=== PATIENT | female | born 1990 | race African-American/Black ===

== ENCOUNTER 2017-02-11 17:56 | Emergency (ER) | payer MEDICAID, OTHER ==
[~2017-02-11] VITALS: Ht 162.6 cm; Wt 104.3 kg
[~2017-02-11 17:56] MED LIST: ACETAMINOPHEN-1 EAC1 PO; AUGMENTIN 500-1 EACH ORAL; CEPHALEXIN500 MG ORAL; COLACE100 MG ORAL; FERROUS SULFAT325 MG PO; IBUPROFEN600 MG ORAL; IBUPROFEN600 MG PO; IRON325 M1 PO; NKM; NORCO 5-325 TA1 EACH ORAL; NORCO 5-325 TA1 EACH PO
[2017-02-11 18:05] VITALS: BP 122/80
[2017-02-11 18:37] LABS: APPEARANCE,URINE SLIGHTLY CLOUDY; KETONES,URINE NEGATIVE (NEGATIVE); LEUKOCYTE ESTERASE ,URINE 2+ (NEGATIVE); NITRITE,URINE POSITIVE (NEGATIVE); PH,URINE 7 (4.5-8.0); PROTEIN,URINE 1+ (NEGATIVE); UROBILINOGEN,URINE 4 MG/DL (0.0-1.0)
[2017-02-11 18:45] LABS: BACTERIA,URINE MODERATE /HPF; SQUAMOUS EPITHELIAL CELL,UR FEW /LPF (NONE/OCC)
[2017-02-11] MEDS ORDERED: ROBAXIN-750750 MG PO (18:55)
[2017-02-11] MEDS ORDERED: IBUPROFEN600 MG ORAL (18:55)
[2017-02-11] MEDS ORDERED: CEPHALEXIN500 MG ORAL (18:55)
[2017-02-11 19:05] VITALS: BP 122/80
--- NOTE | 2017-02-11 21:43 | Emergency Room Report ---
History of Present Illness General Chief Complaint: Back Pain-No Injury Source: Patient Present Illness [facility] The patient is a 26-year-old female presenting for back pain since yesterday as well as chills. Pain is a 9/10 dull ache to the lower back. Does not radiate. No known provoking or relieving factors. She denies any back injury. She denies other symptoms including nausea, vomiting, fever, shortness of breath, chest pain, vaginal discharge, dysuria Allergies: Coded Allergies: No Known Allergies (Unverified , 06/13/12) Patient History Past Medical History: see triage record Pertinent Family History: none Now: No Reviewed Nursing Documentation: PMH: Agreed, PSxH: Agreed Nursing Documentation-PMH Past Medical History: No History, Except For Hx Cardiac Problems: No - ANEMIA Review of Systems All Other Systems: negative except mentioned in HPI Physical Exam Vital Signs Date Time Temp Pulse Resp B/P (MAP) Pulse Ox O2 Delivery O2 Flow Rate FiO2 02/11/17 17:58 98.1 98 20 122/80 99 Room Air Sp02 EP Interpretation: reviewed, normal General Appearance: no apparent distress, alert, GCS 15, non-toxic Head: normocephalic, atraumatic Eyes: bilateral eye normal inspection, bilateral eye PERRL ENT: hearing grossly normal, normal pharynx, no angioedema, normal voice Neck: full range of motion, supple/symm/no masses Respiratory: chest non-tender, lungs clear, normal breath sounds, speaking full sentences Gastrointestinal: normal bowel sounds, non tender, soft, non-distended, no guarding, no rebound Genitourinary: normal inspection, CVA tenderness (R), CVA tenderness (L) Musculoskeletal: back normal, gait/station normal, normal range of motion, tender - bilat paraspinal Neurologic: alert, oriented x3, responsive, motor strength/tone normal, sensory intact, speech normal Psychiatric: judgement/insight normal, memory normal, mood/affect normal, no suicidal/homicidal ideation Skin: normal color, no rash, warm/dry, well hydrated Medical Decision Making PA Attestation Dr. Walden is my supervising physician. Patient management was discussed with my supervising physician Diagnostic Impression: Primary Impression: Muscle strain Additional Impression: UTI (urinary tract infection) Qualified Codes: N39.0 - Urinary tract infection, site not specified ER Course The patient is a 26-year-old female presenting for back pain since yesterday as well as chills. Differential diagnosis considered but not limited to: UTI, BV, yeast infection, pyelonephritis, muscle strain PE: Vitals WNL. NAD. Abdomen: Normal appearance. Non distended. No ecchymosis. Normal BS. Non tender. No McBurney point tenderness. No guarding. + bilat CVA tenderness Lumbar paraspinal muscles are also tenderness with soft palpation Urinalysis is consistent with urinary tract infection The patient discharged home with a prescription for abx and pain medications and is given ER precautions. Laboratory Tests Test 02/11/17 18:28 Urine Color Yellow Urine Appearance Slightly cloudy Urine pH 7 (4.5-8.0) Urine Specific Clancy 1.010 (1.005-1.035) Urine Protein 1+ (NEGATIVE) H Urine Glucose (UA) Negative (NEGATIVE) Urine Ketones Negative (NEGATIVE) Urine Occult Blood 1+ (NEGATIVE) H Urine Nitrite Positive (NEGATIVE) H Urine Bilirubin Negative (NEGATIVE) Urine Urobilinogen 4 MG/DL (0.0-1.0) H Urine Leukocyte Esterase 2+ (NEGATIVE) H Urine RBC 2-4 /HPF (0 - 2) H Urine WBC 5-10 /HPF (0 - 2) H Urine Squamous Epithelial Cells Few /LPF (NONE/OCC) Urine Bacteria Moderate /HPF (NONE) H Urine HCG, Qualitative Negative Lab Results Impression Urinalysis is consistent with urinary tract infection Last Vital Signs Date Time Temp Pulse Resp B/P (MAP) Pulse Ox O2 Delivery O2 Flow Rate FiO2 02/11/17 19:05 98.1 86 20 122/80 99 Room Air Status: improved Disposition: HOME, SELF-CARE Condition: Improved Scripts Methocarbamol* (ROBAXIN-750*) 750 Mg Tablet 750 MG PO TID, #21 TAB 0 Refills Prov: TERZIAN,OLVIN P.A. 02/11/17 Cephalexin* (KEFLEX*) 500 Mg Capsule 500 MG ORAL EVERY 12 HOURS, #14 CAP 0 Refills Prov: TERZIAN,OLVIN P.A. 02/11/17 Ibuprofen* (MOTRIN*) 600 Mg Tablet 600 MG ORAL Q8H Y for For Pain, #30 TAB 0 Refills Prov: TERZIAN,OLVIN P.A. 02/11/17 Referrals: [facility],REFERRING (PCP) Patient Instructions: Back Pain, Adult, Urinary Tract Infection Additional Instructions: I discussed my findings with the patient. All questions and concerns have been answered. Treatment and medication compliance have been addressed. I advised the patient that they need to follow up with PMD in 3-5 days. Return to ED if symptoms worsen, new symptoms arise, or if needed for any reason. Patient verbalized understanding of discharge instructions. OLVIN NORMAN Feb 11, 2017 21:43
== END 2017-02-11 19:05 | disposition home or self-care (01) ==
LOC: EMR 18:58
DX: S39.012A Strain of muscle, fascia and tendon of lower back, initial encounter (principal); X58.XXXA Exposure to other specified factors, initial encounter; Y92.9 Unspecified place or not applicable; N39.0 Urinary tract infection, site not specified
CPT/HCPCS: 81003; 81025; 87086; 87181; 99284

== ENCOUNTER 2017-05-18 22:08 | Emergency (ER) | payer MEDICAID ==
[~2017-05-18] VITALS: Ht 162.6 cm; Wt 106.6 kg
[~2017-05-18 22:08] MED LIST changes: +ROBAXIN-750750 MG PO
[2017-05-18 22:30] VITALS: BP 112/69
[2017-05-18] MEDS ORDERED: TYLENOL EXTRA500 MG ORAL (22:30)
--- NOTE | 2017-05-18 22:35 | Emergency Room Report ---
History of Present Illness General Chief Complaint: Sore Throat Source: Patient Present Illness HPI 26-year-old female presents with sore throat for 2-3 days. Patient had tonsillectomy in the past States sore throat, +mild dry cough. Pain with swallowing however has still been able to eat/drink. No change in voice. No pain with extension/movement of neck. Denies fever or chills. No sick contacts. Allergies: Coded Allergies: No Known Allergies (Unverified , 06/13/12) Patient History Past Medical History: see triage record Past Surgical History: none Pertinent Family History: none Last Menstrual Period: april 30 Now: No Reviewed Nursing Documentation: PMH: Agreed; PSxH: Agreed Nursing Documentation-PMH Hx Cardiac Problems: No - ANEMIA Review of Systems All Other Systems: negative except mentioned in HPI Physical Exam Vital Signs Date Time Temp Pulse Resp B/P (MAP) Pulse Ox O2 Delivery O2 Flow Rate FiO2 05/18/17 22:20 98.6 89 18 112/69 97 Room Air 98.6 Sp02 EP Interpretation: reviewed, normal General Appearance: normal inspection, well appearing, no apparent distress, alert, GCS 15, non-toxic Head: normocephalic, atraumatic Eyes: bilateral eye normal inspection, bilateral eye PERRL, bilateral eye EOMI ENT: pharyngeal erythema, other - no exudate. Neck: normal inspection, full range of motion, supple Respiratory: normal inspection, lungs clear, normal breath sounds, no respiratory distress, no retraction, no wheezing, speaking full sentences, chest symmetrical Cardiovascular #1: normal inspection, regular rate, rhythm, no edema, normal capillary refill Cardiovascular #2: 2+ radial (R), 2+ radial (L) Gastrointestinal: normal inspection, non tender, soft, non-distended, no guarding Musculoskeletal: normal inspection, back normal, normal range of motion, non- tender Neurologic: normal inspection, alert, oriented x3, responsive, motor strength/ tone normal, sensory intact, normal gait, speech normal Psychiatric: normal inspection, judgement/insight normal, memory normal Skin: normal inspection, normal color, no rash, warm/dry, well hydrated, normal turgor Medical Decision Making Diagnostic Impression: Primary Impression: Viral pharyngitis ER Course 26-year-old female with sore throat DDX: Viral vs. infectious mononucleosis vs. bacterial pharyngitis vs. allergies Other serious causes such as [employer] / RPA / deep space neck infection history/physical most consistent with viral pharyngitis Plan: Motrin ER course: Patient remains stable in ED. Pt states improvement of pain with motrin. Disposition: Patient will be discharged to home. Patient will follow up with primary care doctor within 5 days. Strict return precautions discussed with patient such as worsening throat pain/swelling, dysphagia, high fever or chills, shortness of breath, abdominal pain, which may indicate severe illness. Patient verbalized understanding and agreed with plan. Please note that this Emergency Department Report was dictated using [employer] dragline operator technology software, occasionally this can lead to erroneous entry secondary to interpretation by the dictation equipment. Last Vital Signs Date Time Temp Pulse Resp B/P (MAP) Pulse Ox O2 Delivery O2 Flow Rate FiO2 05/18/17 22:30 98.6 89 18 112/69 97 Room Air 98.6 Disposition: HOME, SELF-CARE Condition: Improved Scripts Acetaminophen* (TYLENOL EXTRA STRENGTH*) 500 Mg Tablet 500 MG ORAL Q8H PRN for Prn Headache/Temp > 101, #30 TAB 0 Refills Prov: Lalit Weston M.D. 05/18/17 Patient Instructions: Pharyngitis, [id number] Lalit Weston M.D. May 18, 2017 22:35
[2017-05-18 22:44] VITALS: BP 112/69
== END 2017-05-18 22:40 | disposition home or self-care (01) ==
LOC: EMR 22:24
DX: J02.8 Acute pharyngitis due to other specified organisms (principal); B97.89 Other viral agents as the cause of diseases classified elsewhere
CPT/HCPCS: 99283

== ENCOUNTER 2017-09-28 17:36 | Emergency (ER) | payer OTHER, MEDICAID ==
[~2017-09-28] VITALS: Ht 162.6 cm; Wt 104.3 kg
[~2017-09-28 17:36] MED LIST changes: +TYLENOL EXTRA500 MG ORAL
[2017-09-28] MEDS ORDERED: IBUPROFEN600 MG ORAL (18:51)
[2017-09-28] MEDS ORDERED: TIZANIDINE HCL4 MG ORAL (18:51)
--- NOTE | 2017-09-28 18:51 | Emergency Room Report ---
History of Present Illness General Chief Complaint: Pain Source: Patient Present Illness HPI 27-year-old female presents emergency department complaining of 7 out of 10 in severity localized left jaw pain in addition to soreness and tightness on the left side of her jaw and most notable in the mornings. Patient reports that she had braces placed approximately 4-1/2 months ago. Patient denies fevers, chills, tenderness upon palpation, dental pain or recent dental procedures. Patient reports that she primarily chews on her left side. She denies trauma or fall. Denies ear or neck pain. She reports that she has noted that she is clenching her jaw often especially at night. Patient describes pain as dull constant ache. she denies sharp radiating electrical/burning sensations. Denies TREVINO. Allergies: Coded Allergies: No Known Allergies (Unverified , 06/13/12) Patient History Past Medical History: see triage record Past Surgical History: none Last Menstrual Period: 09/08/17 Now: No : 2 Para: 1 Reviewed Nursing Documentation: PMH: Agreed; PSxH: Agreed Nursing Documentation-PMH Past Medical History: No History, Except For Hx Cardiac Problems: No - ANEMIA Review of Systems All Other Systems: negative except mentioned in HPI Physical Exam Vital Signs Date Time Temp Pulse Resp B/P (MAP) Pulse Ox O2 Delivery O2 Flow Rate FiO2 09/28/17 17:51 98.4 92 18 114/69 96 Room Air 98.4 Sp02 EP Interpretation: reviewed, normal General Appearance: no apparent distress, alert, GCS 15, non-toxic Head: normocephalic, atraumatic Eyes: bilateral eye normal inspection, bilateral eye PERRL ENT: hearing grossly normal, normal voice, TMs + canals normal, uvula midline, moist mucus membranes, other - no clicking of the TMJ's, no trismus., no evidence of infection or teeth tenderness Neck: full range of motion, no meningismus, no bony tend Respiratory: normal breath sounds, speaking full sentences Cardiovascular #1: regular rate, rhythm Musculoskeletal: back normal, gait/station normal, normal range of motion, non- tender, other - no clicking of the TMJ's, no trismus. Neurologic: alert, oriented x3, responsive, motor strength/tone normal, sensory intact, speech normal, grossly normal Psychiatric: judgement/insight normal Skin: normal color, no rash, warm/dry, well hydrated Lymphatic: no adenopathy Medical Decision Making PA Attestation Dr. Polk is my supervising Physician whom patient management has been discussed with. Diagnostic Impression: Primary Impression: TMJ arthralgia Qualified Codes: M26.622 - Arthralgia of left temporomandibular joint Additional Impression: TMJ syndrome ER Course 27-year-old female presents emergency department complaining of 7 out of 10 in severity localized left jaw pain in addition to soreness and tightness on the left side of her jaw and most notable in the mornings. Patient reports that she had braces placed approximately 4-1/2 months ago. Patient denies fevers, chills, tenderness upon palpation, dental pain or recent dental procedures. Patient reports that she primarily chews on her left side. She denies trauma or fall. Denies ear or neck pain. She reports that she has noted that she is clenching her jaw often especially at night. Patient describes pain as dull constant ache. she denies sharp radiating electrical/burning sensations. Denies TREVINO. Ddx considered but are not limited to trigeminal neuralgia exacerbation, drug seeking, ramsy-rubin sign, TMJ-syndrome , giant cell arteritis Vital signs: are WNL, pt. is afebrile H&PE are most consistent with TMJ Syndrome, there is no evidence of infection noted at this time, no evidence suggesting karri-rubin sign., no Dislocation , trigeminal neuralgia of low suspicion given HPI ORDERS: none required at this time, the diagnosis is clinical ED INTERVENTIONS: None required at this time. d/w pt. conservative treatment, and to follow up with a Dentist or her primary care provider. d/w pt. to return to the ED with worsening or new symptoms. DISCHARGE: At this time pt. is stable for d/c to home. Will provide printed patient care instructions, and any necessary prescriptions. Care plan and follow up instructions have been discussed with the patient prior to discharge. Last Vital Signs Date Time Temp Pulse Resp B/P (MAP) Pulse Ox O2 Delivery O2 Flow Rate FiO2 09/28/17 17:51 98.4 92 18 114/69 96 Room Air 98.4 Disposition: HOME, SELF-CARE Condition: Stable Scripts Ibuprofen* (MOTRIN*) 600 Mg Tablet 600 MG ORAL THREE TIMES A DAY, #20 TAB 0 Refills Prov: Luz Maria Almeida 09/28/17 Tizanidine Hcl* (ZANAFLEX*) 4 Mg Tablet 4 MG ORAL THREE TIMES A DAY for 5 Days, #15 TAB 0 Refills Prov: Luz Maria Almeida 09/28/17 Referrals: NON PHYSICIAN (PCP) Patient Instructions: Jaw Range of Motion Exercises, Temporomandibular Joint Syndrome Additional Instructions: Take medications as directed. Follow up with a Dentist for TMJ, or your Primary Care Provider in 3-5 days , even if your symptoms have resolved. Return sooner to ED if new symptoms occur, or current symptoms become worse. Do not drink alcohol, drive, or operate heavy machinery while taking Muscle Relaxers as this may cause drowsiness. - Please note that this Emergency Department Report was dictated using [employer] automation architect technology software, occasionally this can lead to erroneous entry secondary to interpretation by the dictation equipment. Luz Maria Almeida Sep 28, 2017 18:51
[2017-09-28 18:58] VITALS: BP 116/72
[2017-09-28 18:59] VITALS: BP 114/69
== END 2017-09-28 19:00 | disposition home or self-care (01) ==
LOC: EMR 18:30
DX: M26.622 Arthralgia of left temporomandibular joint (principal)
CPT/HCPCS: 99283